=== PATIENT | female | born 1985 | race African-American/Black ===

== ENCOUNTER 2021-04-27 11:58 | Outpatient (CLI) | payer BC | END 2021-04-27 11:59 | disposition home or self-care (01) | LOC: BICMRI 11:58 | PROVIDERS: ATTEND Physician Assistant | DX: D25.9 Leiomyoma of uterus, unspecified (principal); K57.30 Diverticulosis of large intestine without perforation or abscess without bleeding; N88.8 Other specified noninflammatory disorders of cervix uteri | CPT/HCPCS: 72197 ==